=== PATIENT | male | born 2005 | race Caucasian/White ===

== ENCOUNTER 2024-01-12 13:06 | Emergency (ER) | payer OTHER ==
[~2024-01-12] VITALS: Ht 170.2 cm; Wt 100.8 kg
[~2024-01-12 13:06] MED LIST: AUGMENTIN 875/125 PO; NORCO 5/325 PO
[2024-01-12 13:32] VITALS: BP 121/83; PULSE 68; RESP 20; TEMP 98.2; O2SAT 98
[2024-01-12 13:54] LABS: BASOPHILS # (AUTO) 0.1 K/uL (0.00-0.22); EOSINOPHILS # (AUTO) 0.1 K/uL (0-0.4); EOSINOPHILS % (AUTO) 2.1 % (0.0-4.0); HEMATOCRIT 43.5 % (36-52); LYMPHOCYTES # (AUTO) 2.1 K/uL (2.0-11.5); LYMPHOCYTES % (AUTO) 33.8 % (20.5-51.1); MEAN CORPUSCULAR HEMOGLOBIN 30 pg (27-31); MEAN CORPUSCULAR HGB CONC 34 g/dL (33-37); MEAN CORPUSCULAR VOLUME 85.8 fL (80-94); MONOCYTES # (AUTO) 0.5 K/uL (0.8-1.0); MONOCYTES % (AUTO) 7.3 % (1.7-9.3); NEUTROPHILS # (AUTO) 3.5 K/uL (1.8-7.7); NEUTROPHILS % (AUTO) 55.8 % (42.2-75.2); PLATELET COUNT (AUTO) 238 K/uL (140-450); RED BLOOD CELL COUNT(AUTO) 5.07 MIL/uL (4.20-6.10); RED CELL DISTRIBUTION WIDTH 13.4 % (11.6-13.7); WHITE BLOOD COUNT (AUTO) 6.2 K/uL (4.5-11.0)
[2024-01-12 14:01] LABS: ANION GAP 11.5 (8-16); CALCIUM 9.1 mg/dL (8.5-10.1); CARBON DIOXIDE 28.6 mmol/L (21-32); CREATININE 0.9 mg/dL (0.6-1.3); POTASSIUM 5.1 mmol/L (3.5-5.1)
[2024-01-12 14:09] LABS: BILIRUBIN,DIRECT 0.1 mg/dL (0.0-0.3); TOTAL BILIRUBIN 0.2 mg/dL (0.0-1.0)
[2024-01-12] MEDS ORDERED: DICYCLOMINE HCL LIQUID 10 MG/5 ML UDC ONE (15:31)
[2024-01-12] MEDS ORDERED: ALUMINUM HYD/MAG/SIMETHICONE 30 ML UDC ONE (15:31)
[2024-01-12] MEDS: KETOROLAC 30 MG/ML VIAL IM ONE (16:08)
[2024-01-12] MEDS: DICYCLOMINE HCL LIQUID 20 MG, ALUMINUM HYD/MAG/SIMETHICONE 30 ML, LIDOCAINE VISCOUS 2% ... PO ONE (16:08)
[2024-01-12] MEDS ORDERED: MIRABULK PO (17:49)
[2024-01-12] MEDS ORDERED: FAMO-90 PO (17:49)
[2024-01-12] MEDS ORDERED: IBUP-2213 PO (17:49)
[2024-01-12 18:00] VITALS: BP 125/75; PULSE 72; RESP 16; TEMP 98; O2SAT 99
== END 2024-01-12 18:04 | disposition home or self-care (01) ==
LOC: MED 13:06
DX: K80.20 Calculus of gallbladder without cholecystitis without obstruction (principal); K76.0 Fatty (change of) liver, not elsewhere classified; K59.00 Constipation, unspecified; Z79.899 Other long term (current) drug therapy
CPT/HCPCS: 36415; 74018; 76705; 80048; 80076; 81002; 83690; 85025; 96372; 99285; J1885